=== PATIENT | female | born 1955 | race Two or more races ===

== ENCOUNTER 2017-06-12 10:28 | Emergency (ER) | payer SELFPAY ==
[~2017-06-12] VITALS: Ht 152.4 cm; Wt 60.8 kg
--- NOTE | 2017-06-12 12:40 | NUR ---
Patient discharged to home in stable condition. Written and verbal after care instructions given. Patient verbalizes understanding of instruction.
--- NOTE | 2017-06-12 12:40 | NUR ---
Crutches dispensed. Pt instructed on proper use of crutches. Patient able to demonstrate correct use of crutches.
[2017-06-12 12:41] VITALS: BP 161/88
== END 2017-06-12 12:42 | disposition home or self-care (01) ==
LOC: ER 10:30
DX: S92.322A Displaced fracture of second metatarsal bone, left foot, initial encounter for closed fracture (principal); S92.312A Displaced fracture of first metatarsal bone, left foot, initial encounter for closed fracture; I10 Essential (primary) hypertension; V03.99XA Pedestrian with other conveyance injured in collision with car, pick-up truck or van, unspecified whether traffic or nontraffic accident, initial encounter; Y93.89 Activity, other specified; Y92.89 Other specified places as the place of occurrence of the external cause; Y99.8 Other external cause status
CPT/HCPCS: 73630; 99284; A4606; Z7610